=== PATIENT | female | born 1975 | race Caucasian/White ===

== ENCOUNTER 2018-12-16 13:39 | Emergency (ER) | payer SELFPAY ==
[~2018-12-16] VITALS: Ht 160 cm; Wt 104.3 kg
[2018-12-16 13:45] VITALS: BP 153/99
[2018-12-16] MEDS ORDERED: HYDROCODONE/APAP 5/325MG 1 EACH TABLET ONE (14:10)
[2018-12-16] MEDS ORDERED: AMOX/CLAVULANATE 875 MG TABLET ONE (14:21)
[2018-12-16] MEDS ORDERED: HYDROCODONE/APAP 5/325MG 1 EACH TABLET PO ONE (14:30)
[2018-12-16] MEDS ORDERED: AMOX/CLAVULANATE 875 MG TABLET PO ONE (14:30)
== END 2018-12-16 14:26 | disposition home or self-care (01) ==
LOC: ER 13:40
DX: K08.89 Other specified disorders of teeth and supporting structures (principal)